=== PATIENT | male | born 1955 | race Hispanic/Latino ===

== ENCOUNTER → 2021-05-22 | Outpatient (CLI) | payer OTHER | END | disposition home or self-care (01) | LOC: RAH 10:00 | PROVIDERS: ATTEND Internal Medicine Gastroenterology | DX: N28.1 Cyst of kidney, acquired (principal); Z90.49 Acquired absence of other specified parts of digestive tract | CPT/HCPCS: 76700 ==

== ENCOUNTER → 2021-07-04 | Outpatient (CLI) | payer OTHER | END | disposition home or self-care (01) | LOC: RAH 11:25 | PROVIDERS: ATTEND Internal Medicine Gastroenterology | DX: R14.0 Abdominal distension (gaseous) (principal); R68.81 Early satiety | CPT/HCPCS: 78264; A9541 ==